=== PATIENT | male | born 1995 | race African-American/Black ===

== ENCOUNTER 2017-11-03 23:38 | Emergency (ER) | payer MEDICAID, OTHER | END 2017-11-04 00:39 | disposition left against medical advice (07) | LOC: ER 23:38 | DX: Z53.21 Procedure and treatment not carried out due to patient leaving prior to being seen by health care provider (principal) ==

== ENCOUNTER 2017-11-04 22:57 | Emergency (ER) | payer MEDICAID, OTHER ==
[~2017-11-04] VITALS: Ht 172.7 cm; Wt 62.0 kg
[2017-11-04 23:25] VITALS: BP 120/94
== END 2017-11-05 00:50 | disposition left against medical advice (07) ==
LOC: ER 22:57
DX: Z53.21 Procedure and treatment not carried out due to patient leaving prior to being seen by health care provider (principal)